=== PATIENT | male | born 1960 | race Caucasian/White ===

== ENCOUNTER 2019-06-16 11:56 | Day surgery (SDC) | payer OTHER ==
[~2019-06-16 11:56] MED LIST: LIPITOR40 MG PO; ZETIA10 MG PO
--- NOTE | 2019-06-16 13:44 | NUR ---
06/16/19 1344 Carmela Person [id number] ARRIVED TO PACU ON 2L NC AWAKE DENIES PAIN OR NAUSEA. ABDOMEN SOFT ENCOURAGED TO PASS GAS. PATIENT DROWSY DOZES BACK TO SLEEP. RR EVEN. IVF INFUSING
--- NOTE | 2019-06-17 13:20 | OR ---
[facility] [address] [place], [place] [address] Signed DATE OF OPERATION: 06/16/2019 SURGEON: Yuli Dobson MD PREOPERATIVE DIAGNOSIS: Colon surveillance, known history of diverticulosis. POSTOPERATIVE DIAGNOSES: 1. Diverticulosis, left colon and sigmoid. 2. Internal hemorrhoids. PROCEDURE: Total colonoscopy to cecum. ANESTHESIA: Intravenous sedation, fentanyl 150 mcg, Versed 10 mg. INDICATION: This 58-year-old white man is a patient of Dr. Rob Crocker of [place], [place]. He last underwent colonoscopy 10 years ago. He is symptom-free having no bleeding, diarrhea, or constipation problems and has no family history of colon cancer. He is here for colon screening essentially. He understands risks of bleeding, infection, and perforation related to colonoscopy and wished to proceed. FINDINGS: The prep was excellent. MiraLAX base prep was used primarily. Diverticula were noted in the sigmoid and left colon, all of them small. He had no angulation deformity or stricture. There were no polyps. He did have internal hemorrhoids noted as well. DESCRIPTION OF PROCEDURE: The patient was brought to the endoscopy suite and placed in lateral decubitus position, given intravenous sedation to the point of slurred speech and nystagmus. Digital rectal examination was normal. Full cardiopulmonary monitoring was maintained. An Olympus video colonoscope was passed in the rectum and manipulated throughout the colon ultimately intubating the cecum itself. The ileocecal valve and appendiceal orifice were normal. The scope was withdrawn from that point. Examination throughout undertaken showed no sign of polyps or colitis, only small diverticula of the left and sigmoid colon. Retroflexed view of the rectum showed internal hemorrhoidal changes but no other abnormalities. The scope was removed. The patient was taken to recovery room in good condition. Electronically Signed By: YULI DOBSON MD 06/17/19 1320 PATIENT NAME: MARIA G FOWLER OPERATIVE REPORT DATE OF : 56 REPORT #: [id number] PHYSICIAN: YULI DOBSON MD PCP: NO PRIMARY CARE PHYSICIAN REPORT IS CONFIDENTIAL AND NOT TO BE RELEASED WITHOUT AUTHORIZATION [facility] [address] [place] [id number] Signed CONCLUDING DIAGNOSIS: Diverticulosis and internal hemorrhoids. No polyps or colitis. PLAN: Recommend repeat colonoscopy in 10 years sooner if clinically indicated. He will return to the ongoing care as needed of Dr. Rob Crocker [place], [place]. MD MARICRUZ Frank/MODL /[id number] cc: Rob Crocker MD Copies: ~ Electronically Signed By: YULI DOBSNO MD 06/17/19 1320 PATIENT NAME: MARIA G FOWLER OPERATIVE REPORT DATE OF : 56 REPORT #: [id number] PHYSICIAN: YULI DOBSON MD PCP: NO PRIMARY CARE PHYSICIAN REPORT IS CONFIDENTIAL AND NOT TO BE RELEASED WITHOUT AUTHORIZATION
== END 2019-06-16 14:25 | disposition home or self-care (01) ==
LOC: DS 11:56 → OPS 11:56 → DS 13:00 → OPS 14:25
PROVIDERS: Surgery
PROC: 0DJD8ZZ Inspection of Lower Intestinal Tract, Via Natural or Artificial Opening Endoscopic (ICD-10-PCS; principal; 2019-06-16 13:00)
DX: Z12.11 Encounter for screening for malignant neoplasm of colon (principal); K64.8 Other hemorrhoids; K57.30 Diverticulosis of large intestine without perforation or abscess without bleeding; G47.30 Sleep apnea, unspecified; E78.5 Hyperlipidemia, unspecified; Z79.899 Other long term (current) drug therapy
CPT/HCPCS: 99153; G0500; J2250; J3010; J7121